=== PATIENT | female | born 1950 | race Caucasian/White ===

== ENCOUNTER 2016-11-10 05:05 | Inpatient (IN) | payer BC ==
[~2016-11-10] VITALS: Ht 154.9 cm; Wt 65.0 kg
[2016-11-10] VITALS (9 sets, daily range): BP systolic 121–136; BP diastolic 63–76
[~2016-11-10 05:05] MED LIST: ACID REDUCER20 MG PO; BENADRYL25 MG PO; ELAVIL100 MG PO; HYDROCHLOROTHIA25 MG PO; KENALOG,ARISTOC80 G1 TP; LEVOTHYROXINE100 MCG PO; LORAZEPAM0.5 MG PO; MAGNESIUM400 M1 PO; NEXIUM40 MG PO; OMEPRAZOLE40 M1 PO; PREDNISONE20 MG PO; SIMVASTATIN40 MG PO; SINGULAIR10 MG PO; TYLENOL EXTRA500 MG PO; VITAMIN B-122000 MC1 PO; VITAMIN D50000 UNI4 PO
[2016-11-10 05:52] LABS: CHLORIDE 100 mEq/L (99-109); POTASSIUM 3.9 mEq/L (3.7-5.4); SODIUM 138 mEq/L (136-147)
[2016-11-10 05:54] LABS: GLUCOSE 92 mg/dL (70-99)
[2016-11-10 05:55] LABS: ANION GAP 9 MEQ/L (2-14)
[2016-11-10 05:57] LABS: GFR ESTIMATE (CALCULATED) > 59 mL/min/
[2016-11-10 05:58] LABS: UREA NITROGEN (BUN) 20 mg/dL (9-23)
[2016-11-10 05:59] LABS: PTT 22.9 (25-32)
[2016-11-10 06:04] LABS: TROP-I INTERPRETATION NEGATIVE; TROPONIN-I 0.11 ng/mL (0.0-0.30)
[2016-11-10 06:14] LABS: MCHC 31.7 G/DL (30.0-36.0); MCV 94.9 FL (83-99); MEAN PLAT.VOLUME 10.1 uM^3 (9.5-12.4); NRBC (%) 1.4 /100 WBC (0-0); RBC DIS.WIDTH-CV 15.6 % (11.8-14.6); RED BLOOD COUNT 2.53 M/uL (3.80-5.20)
[2016-11-10 06:18] LABS: PLATELET COUNT 86 K/uL (156-360); WHITE BLOOD COUNT 2.2 K/uL (4.1-10.2)
[2016-11-10 08:31] LABS: ATYPICAL LYMPHOCYTE 0.9 %; BAND NEUTROPHILS 15.1 % (0-8.0); BASOPHILS 2.8 %; EOSINOPHIL ABS CT 0.1; EOSINOPHILS 4.7 % (0-5.0); INSTRUMENT ABS NEUTROPHIL CT 0.9 K/uL; LYMPHOCYTES 35.9 % (15.0-45.0); MACROCYTES 1+; METAMYELOCYTES 0.9 %; PLAT.SUFFICIENCY DECREASED; POLYCHROMASIA 1+; SEG.NEUTROPHILS 32.1 % (46.0-76.0); SMUDGE CELLS 3.8
[2016-11-10 09:49] LABS: D-DIMER ELISA 0.38 mg/L FEU (< 0.57)
[2016-11-10] MEDS ORDERED: ERGOCALCIF50000 UNIT PO (10:55)
[2016-11-10] MEDS ORDERED: DELTASONE20 M1 PO (10:59)
[2016-11-10] MEDS ORDERED: [UNRECOGNIZED DRUG - OTHER] IV (11:03)
[2016-11-10 12:34] LABS: TROP-I INTERPRETATION NEGATIVE; TROPONIN-I 0.09 ng/mL (0.0-0.30)
[2016-11-11 03:14] VITALS: BP 126/59
[2016-11-11 06:33] LABS: TROP-I INTERPRETATION NEGATIVE; TROPONIN-I 0.09 ng/mL (0.0-0.30)
[2016-11-11 06:58] LABS: HEMATOCRIT 28.3 % (36.0-46.0); MCH 30.7 PG (29.0-34.0); MCHC 32.2 G/DL (30.0-36.0); MCV 95.6 FL (83-99); MEAN PLAT.VOLUME 10.6 uM^3 (9.5-12.4); NRBC (%) 1.2 /100 WBC (0-0); PLATELET COUNT 95 K/uL (156-360); RBC DIS.WIDTH-CV 16.1 % (11.8-14.6); RBC DIS.WIDTH-SD 55.8 % (39-53); RED BLOOD COUNT 2.96 M/uL (3.80-5.20)
[2016-11-11 07:22] LABS: ANION GAP 7 MEQ/L (2-14); CHLORIDE 98 MEQ/L (99-109); GFR ESTIMATE (CALCULATED) > 59 mL/min/; GLUCOSE 91 mg/dL (70-99); POTASSIUM 4.5 MEQ/L (3.7-5.4); SAMPLE HEMOLYSIS CHECK 0; SAMPLE ICTERIC CHECK 0; SAMPLE LIPEMIA CHECK 0; SODIUM 138 MEQ/L (136-147); UREA NITROGEN (BUN) 19 mg/dL (9-23)
[2016-11-11 07:30] VITALS: BP 118/66
[2016-11-11 11:34] VITALS: BP 125/64
[2016-11-11 12:21] LABS: TROP-I INTERPRETATION NEGATIVE; TROPONIN-I 0.09 ng/mL (0.0-0.30)
[2016-11-11] MEDS ORDERED: METOPROLOL SUCC50 MG PO (13:04)
== END 2016-11-11 13:54 | disposition home or self-care (01) | DRG 809 ==
LOC: EME → EDBD 05:05 → 2EASTP 10:29 → EDOF 10:29 → 2EASTP 11:29
PROVIDERS: Emergency Medicine; Family Medicine Sports Medicine
PROC: 30233N1 Transfusion of Nonautologous Red Blood Cells into Peripheral Vein, Percutaneous Approach (ICD-10-PCS; principal; 2016-11-10)
DX: D70.1 Agranulocytosis secondary to cancer chemotherapy (principal); F33.9 Major depressive disorder, recurrent, unspecified; C84.48 Peripheral T-cell lymphoma, not elsewhere classified, lymph nodes of multiple sites; D61.811 Other drug-induced pancytopenia; R50.81 Fever presenting with conditions classified elsewhere; T45.1X5A Adverse effect of antineoplastic and immunosuppressive drugs, initial encounter; D64.81 Anemia due to antineoplastic chemotherapy; D69.59 Other secondary thrombocytopenia; I10 Essential (primary) hypertension; I25.10 Atherosclerotic heart disease of native coronary artery without angina pectoris; R19.5 Other fecal abnormalities; E78.5 Hyperlipidemia, unspecified; J44.9 Chronic obstructive pulmonary disease, unspecified; F41.9 Anxiety disorder, unspecified; E53.8 Deficiency of other specified B group vitamins; K21.9 Gastro-esophageal reflux disease without esophagitis; M19.90 Unspecified osteoarthritis, unspecified site; J30.2 Other seasonal allergic rhinitis; E03.9 Hypothyroidism, unspecified; Z87.891 Personal history of nicotine dependence; Z88.0 Allergy status to penicillin; Z91.041 Radiographic dye allergy status; Z80.1 Family history of malignant neoplasm of trachea, bronchus and lung
CPT/HCPCS: 71020; 80048; 84484; 85025; 85027; 85379; 85610; 85730; 86850; 86900; 86901; 86920; 93005; 99281; 99285; J1940; J7512; P9016